=== PATIENT | male | born 1985 | race Caucasian/White ===

== ENCOUNTER 2020-04-08 15:50 | Emergency (ER) | payer MEDICAID, SELFPAY ==
[2020-04-08 16:00] VITALS: BP 144/95; PULSE 110; RESP 18; TEMP 36.1; O2SAT 97; BMI 31.1
--- NOTE | 2020-04-08 16:07 | ED.DENTAL ---
HPI - Dental/Oral General Chief complaint: Dental/Oral Stated complaint: Dental pain Time Seen by Provider: 04/08/20 16:07 History of Present Illness HPI Narrative: Patient complains of right upper molar pain for several days, no fever no chills no difficulty breathing or swallowing Related Data Previous Rx's Medication Instructions Recorded hydrocodone-acetaminophen 1 tab PO Q6H PRN #14 tab 04/08/20 ibuprofen 600 mg PO Q6H PRN #20 tab 04/08/20 penicillin V potassium 500 mg PO QID 7 Days #28 tab 04/08/20 Allergies Allergy/AdvReac Type Severity Reaction Status Date / Time No Known Allergies Allergy Verified 04/08/20 16:02 [No Known Allergies*] Review of Systems Review of Systems: No fever no chills no dizziness no weakness, no difficulty breathing no difficulty swelling no swelling under the tongue no rash Yes all other systems are reviewed and are negative [facility] Past Medical History Attestation statement: The following information was validated with the patient. Source: nursing notes reviewed Medical History (Updated 04/08/20 @ 16:45 by WILLEM Pena) Anxiety Bulging discs Social History Social History Advance Directives: No Advance Directives Information Provided: Yes Physical Exam Vital Signs: Vital Signs: Last Vital Signs Temp 97.0 F 04/08/20 16:00 Pulse 110 H 04/08/20 16:00 Resp 18 04/08/20 16:00 BP 144/95 H 04/08/20 16:00 Pulse Ox 97 04/08/20 16:00 Body Mass Index 31.1 General appearance a and O x3 comfortable no acute distress The oral exam the right upper rear molar is very decayed and tender there was no fluctuant gum abscess, there is no impairment of breathing and swallowing there was no swelling and no swelling under the tongue no drooling and there was no redness to the skin on the right side of the face The pharynx was clear The neck was supple Respiratory no distress Skin no rashes Course Course Course Narrative: Patient was treated for possible dental infection with penicillin and given analgesics and will follow with dentist Discharge Plan Discharge Clinical Impression: Dental caries Patient Disposition: Home, Self-Care Additional Instructions: Follow with dentist Return any time if worse Prescriptions: New hydrocodone-acetaminophen 5-325 mg tablet 1 tab PO Q6H PRN (Reason: pain) Qty: 14 RF: 0 ibuprofen 600 mg tablet 600 mg PO Q6H PRN (Reason: pain) Qty: 20 RF: 0 penicillin V potassium 500 mg tablet 500 mg PO QID 7 Days Qty: 28 RF: 0 Interventions: ED Discharge Assessment Last Done: 04/08/20 16:47 Discharge Date/Time: 04/08/20 16:50
[2020-04-08] MEDS: Ibuprofen 600 MG TABLET PO (16:18)
[2020-04-08] MEDS: Penicillin V Potassium 250 MG TABLET 500 MG PO (16:18)
== END 2020-04-08 16:50 | disposition home or self-care (01) ==
PROVIDERS: Emergency Provider Emergency Medicine Emergency Medical Services; PCP Internal Medicine
DX: K02.9 Dental caries, unspecified (principal)
CPT/HCPCS: 99283

== ENCOUNTER 2020-04-09 03:25 | Emergency (ER) | payer MEDICAID, SELFPAY ==
[2020-04-09 03:41] VITALS: BP 149/97; PULSE 105; RESP 20; O2SAT 98; BMI 31.1
--- NOTE | 2020-04-09 04:22 | ED_ITS ---
HPI - Dental/Oral General Chief complaint: Dental/Oral Stated complaint: Dental pain Time Seen by Provider: 04/09/20 04:22 Source: patient Mode of arrival: ambulatory Limitations: no limitations History of Present Illness HPI Narrative: This is a 34-year-old male who presents with persistent tooth pain, but states that this is due to the fact that his pharmacy was not open today and he was unable to purchase the antibiotics. Otherwise he denies any fevers, chills, difficulty swallowing or difficulty breathing. Related Data Previous Rx's Medication Instructions Recorded hydrocodone-acetaminophen 1 tab PO Q6H PRN #14 tab 04/08/20 ibuprofen 600 mg PO Q6H PRN #20 tab 04/08/20 penicillin V potassium 500 mg PO QID 7 Days #28 tab 04/08/20 Allergies Allergy/AdvReac Type Severity Reaction Status Date / Time No Known Allergies Allergy Verified 04/09/20 03:41 [No Known Allergies*] Review of Systems Review of Systems: Pertinent positives and negatives as stated in HPI and 10 point review systems is otherwise negative. [facility] Past Medical History Source: nursing notes reviewed Medical History Anxiety Bulging discs Social History Social History Alcohol intake: never Smoking Status: Never smoker Use of substances other than those prescribed or required for medical reasons: No Advance Directives: No Advance Directives Information Provided: No Physical Exam Vital Signs: Vital Signs: Last Vital Signs Pulse 105 H 04/09/20 03:41 Resp 20 04/09/20 03:41 BP 149/97 H 04/09/20 03:41 Pulse Ox 98 04/09/20 03:41 Body Mass Index 31.1 VITAL SIGNS: Reviewed. GENERAL: no acute distress. HEAD: Normocephalic/atraumatic, EYES: PERRLA, EOMI intact without pain, no nystagmus/pallor/icterus noted EARS: Ext canals without abnormality, TMs non-bulging and non-erythematous NOSE: Nares patent bilateral OROPHARYNX: no oral lesions noted, posterior pharynx clear and non-erythematous without noted tonsillar enlargement/erythema/exudates; no obvious dental caries, however there is mild swelling to the gum area over the right front and canine tooth. NECK: Supple, no adenopathy LUNGS: Normal breath sounds. No adventitious sounds or accessory muscle use. SpO2<98> CARDIOVASCULAR: Regular rate and rhythm without noted murmurs, no JVD or lower extremity edema. ABDOMEN: Soft, non-tender, non-distended with bowel sounds. No rigidity. No guarding. No palpable masses or hernias noted Course Course Course Narrative: This is a 34-year-old male with dental infection for which he has prescriptions that he will be able to fill in the morning, but he is here for an additional dose as he was unable to take any medications yesterday. T here are no evidence of systemic infection he will be provided with another dose penicillin as well as combination analgesics and discharged home in stable condition. Discharge Plan Discharge Clinical Impression: Dental caries Patient Disposition: Home, Self-Care Instructions: Mouth Care (ED), Toothache (ED) Additional Instructions: Please do not hesitate to return the emergency department should you experience any worsening of her symptoms or the development of fever/chills that are not re sponsive to [id number] Tylenol or ibuprofen. Please fill your prescriptions 1st thing in the morning when the pharmacy opens and complete the entire course of antibiotics. Prescriptions: No Action hydrocodone-acetaminophen 5-325 mg tablet 1 tab PO Q6H PRN (Reason: pain) Qty: 14 RF: 0 ibuprofen 600 mg tablet 600 mg PO Q6H PRN (Reason: pain) Qty: 20 RF: 0 penicillin V potassium 500 mg tablet 500 mg PO QID 7 Days Qty: 28 RF: 0 Referrals: Physician,Unknown [Primary Care Provider] - 2 days
[2020-04-09] MEDS: Ketorolac Tromethamine 15 MG/ML VIAL IM (04:49)
[2020-04-09] MEDS: Acetaminophen 325 MG TABLET 975 MG PO (04:49)
[2020-04-09] MEDS: Penicillin V Potassium 250 MG TABLET 500 MG PO (04:50)
== END 2020-04-09 04:50 | disposition home or self-care (01) ==
PROVIDERS: Emergency Provider Student in an Organized Health Care Education/Training Program
DX: K02.9 Dental caries, unspecified (principal)
CPT/HCPCS: 96372; 99284; J1885

== ENCOUNTER 2020-04-10 12:45 | Emergency (ER) | payer MEDICAID, SELFPAY ==
[2020-04-10 14:07] VITALS: BP 132/82; PULSE 98; RESP 18; TEMP 36.8; O2SAT 98; BMI 31.1
[2020-04-10 16:30] VITALS: RESP 18
--- NOTE | 2020-04-10 16:34 | ED.GENADULT ---
HPI - General Adult General Chief complaint: General Medical Stated complaint: facial swelling Time Seen by Provider: 04/10/20 16:28 Source: patient Mode of arrival: ambulatory Limitations: no limitations History of Present Illness HPI narrative: Patient comes emergency room complaining of facial swelling. Patient has been here 3 days in a row with the same complaint. Today patient came because his face is still swollen. Patient was seen here yesterday, he was prescribed penicillin, ibuprofen and Vicodin. Patient states he has enough pain medication. Patient has been taking his antibiotic for less than 24 hours. According to the patient, the swelling has gone down, no longer affecting the lower portion of his eye, the facial swelling is also decreasing but it has not gone yet. Patient denies pain, states that since he started the antibiotic, the pain has decreased. Patient came because his face still swollen. Patient denies fever and chills, patient reports improvement from his previous visit the ER yesterday MD complaint: Facial swelling Related Data Previous Rx's Medication Instructions Recorded hydrocodone-acetaminophen 1 tab PO Q6H PRN #14 tab 04/08/20 ibuprofen 600 mg PO Q6H PRN #20 tab 04/08/20 penicillin V potassium 500 mg PO QID 7 Days #28 tab 04/08/20 Allergies Allergy/AdvReac Type Severity Reaction Status Date / Time No Known Allergies Allergy Verified 04/09/20 03:41 [No Known Allergies*] Review of Systems Review of Systems: Constitutional : No Weight loss, No Fever, No Chills, No Night Sweats, No Fatigue, No Malaise ENT/Mouth : No Hearing loss, No Ear Pain, No Nasal Congestion, No Sinus Pain, No Hoarseness, No sore throat, No Rhinorrhea, No Swallowing Difficulty, improving facial swelling, dental pain nearly resolved Eyes: No Eye Pain, No Swelling, No Redness, No Foreign Body, No Discharge, No Vision Changes Cardiovascular : No Chest Pain, No SOB, No Dyspnea on Exertion, No Orthopnea, No Edema, No Palpitations Respiratory : No Cough, No Sputum, No Wheezing, No Smoke Exposure, No Dyspnea Gastrointestinal : No Nausea, No Vomiting, No Diarrhea, No Constipation, No abdominal Pain, No Hematochezia, No Melena Genitourinary : no irregular bleeding, No Dysuria, No Urinary Frequency, No Hematuria, No Urinary Incontinence, No Urgency, No Flank Pain, No Urinary Flow Changes, No Hesitancy Musculoskeletal : No joint pain, No Myalgias, No Joint Swelling Skin : No Skin Lesions, No rash Neuro : No Weakness, No Numbness, No Paresthesias, No Loss of Consciousness, No Dizziness, No Headache Psych : No Anxiety/Panic, No Depression, No SI/HI/AH/VH, No Social Issues, Heme/Lymph: No Bruising, No Bleeding,No Lymphadenopathy Endocrine : No Polyuria, No Polydipsia, No Temperature Intolerance ON LICENSE OF [facility] Past Medical History Medical History Anxiety Bulging discs Social History Social History Alcohol intake: never Smoking Status: Never smoker Smoked in Last 30 Days: No Use of substances other than those prescribed or required for medical reasons: No Advance Directives: No Advance Directives Information Provided: Yes Physical Exam Vital Signs: Vital Signs: Last Vital Signs Temp 98.2 F 04/10/20 14:07 Pulse 98 04/10/20 14:07 Resp 18 04/10/20 16:30 BP 132/82 04/10/20 14:07 Pulse Ox 98 04/10/20 14:07 Body Mass Index 31.1 Appearance: Alert. Oriented X3. No acute distress. Eyes: Pupils equal, round and reactive to light. ENT: Pharynx normal. No orbital swelling, mild facial swelling on the cheek right side, no erythema, no signs of cellulitis. Poor dentition, no pain to palpation Neck: Normal inspection. Neck supple. No lymph nodes noted. No crepitus CVS: Normal heart rate and rhythm. Pulses normal. Normal S1 and S2 Respiratory: No respiratory distress. Breath sounds normal. No Wheezing. No rales Abdomen: Soft and nontender. No rigidity. No distention. good BS x4 Skin: Skin warm and dry. Normal skin color. Normal skin turgor. Extremities: No lower extremity edema. No lower extremity edema. No Lacerations. No Rash Neuro: Oriented X 3. No motor deficit. No sensory deficit. Moving all extermities. No slurred speech. Course Course Course Narrative: Overall, patient is improving, the swelling is decreasing, there is no pain. Patient has had antibiotics for less than 24 hours. I discussed with the patient to continue taking the pain medication and antibiotics as prescribed yesterday, and to keep monitoring the progress. If he has any worsening symptoms, any new symptoms, he is to return to the emergency room. I discussed with the patient that the main treatment will be a dental procedure, for which he must follow up with his dentist Discharge Plan Discharge Clinical Impression: Right facial swelling Patient Disposition: Home, Self-Care Instructions: Dental Abscess (ED) Additional Instructions: Please follow-up with your dentist. Please follow-up with your primary care physician tomorrow. If you have any worsening or new symptoms, please return to the emergency room or call 911 Prescriptions: No Action hydrocodone-acetaminophen 5-325 mg tablet 1 tab PO Q6H PRN (Reason: pain) Qty: 14 RF: 0 ibuprofen 600 mg tablet 600 mg PO Q6H PRN (Reason: pain) Qty: 20 RF: 0 penicillin V potassium 500 mg tablet 500 mg PO QID 7 Days Qty: 28 RF: 0
== END 2020-04-10 16:48 | disposition home or self-care (01) ==
PROVIDERS: Emergency Provider Emergency Medicine; PCP Internal Medicine
DX: R22.0 Localized swelling, mass and lump, head (principal); Z79.899 Other long term (current) drug therapy
CPT/HCPCS: 99283; 99284

== ENCOUNTER 2024-04-05 23:05 | Emergency (ER) | payer MEDICAID, SELFPAY ==
--- NOTE | ~2024-04-05 | CT_ITS ---
EXAMINATION: CT ABDOMEN AND PELVIS WITHOUT CONTRAST CLINICAL INFORMATION: Abdominal pain. COMPARISON: None available. TECHNIQUE: Multidetector volumetric imaging was performed from the superior aspect of the liver through the pubic symphysis. Sagittal and coronal reformatted images were obtained on the technologist's workstation. This CT examination was performed using dose optimization techniques as appropriate, variously including the following: *Automated exposure control *Adjustment of mA and/or kV according to patient size (this includes techniques or standardized protocols for targeted exams where dose is matched to indication/reason for exam; i.e. extremities or head) *Use of iterative reconstruction technique DLP: 712 mGy-cm FINDINGS: LUNG BASES: The visualized lung bases are unremarkable. LIVER, GALLBLADDER, AND BILIARY TREE: The liver is normal in size, shape, and attenuation. No focal hepatic lesion or biliary ductal dilatation is present. The gallbladder is unremarkable with no evidence of radiopaque gallstones, gallbladder wall thickening, or obvious pericholecystic inflammatory changes. PANCREAS: Unremarkable. SPLEEN: Unremarkable. ADRENAL GLANDS: Unremarkable. KIDNEYS AND URETERS: The kidneys are normal in size, shape, and attenuation. There is mild right hydronephrosis and hydroureter extending into the pelvis to the level of a 2 mm distal right ureteric calculus. BLADDER: Unremarkable. GASTROINTESTINAL TRACT: The small and large bowel are unremarkable. The appendix is not seen. There are surgical clips at the base of the cecum. ABDOMINAL WALL: No significant hernia is appreciated. LYMPH NODES: Normal. VASCULAR: Unremarkable. PELVIC VISCERA: Unremarkable. OSSEOUS STRUCTURES: Unremarkable. CT/CT abdomen pelvis wo IV con IMPRESSION: Mild right hydronephrosis and hydroureter extending into the pelvis to the level of a 2 mm distal right ureteric calculus. Fleischner guidelines were followed. Electronically signed by: Jean Pierre Martell MD 04/06/2024 02:28 AM EST
--- NOTE | ~2024-04-05 | US_ITS ---
EXAMINATION: US SCROTUM CLINICAL INFORMATION: Pain. COMPARISON: None available. TECHNIQUE: A sonogram of the scrotum was performed assessing villagomez-scale appearance and color Doppler flow. Spectral Doppler analysis of the arterial and venous flow were performed in the testes bilaterally. FINDINGS: RIGHT: Right testicle measures 5 x 2.3 x 3.3 cm, volume 19.8 mL. No focal testicular parenchymal lesions are visualized. Spectral Doppler analysis of the arterial and venous flow is normal in the right testis. Right epididymal head is normal in size. No right hydrocele or varicocele is seen. Right epididymal Doppler flow is LEFT: Left testicle measures 4.8 x 2.4 x 3.1 cm, volume 18.6 mL. No focal testicular parenchymal lesions are visualized. Spectral Doppler analysis of the arterial and venous flow is normal in the left testis. There is a 1 x 0.7 x 0.6 cm left epididymal head cyst. No left hydrocele or varicocele is seen. Left epididymal Doppler flow is normal. US/US scrotum doppler IMPRESSION: Normal scrotal ultrasound. Electronically signed by: Jean Pierre Martell MD 04/06/2024 01:56 AM EST
--- NOTE | ~2024-04-05 | US_ITS ---
EXAMINATION: US SCROTUM CLINICAL INFORMATION: Pain. COMPARISON: None available. TECHNIQUE: A sonogram of the scrotum was performed assessing villagomez-scale appearance and color Doppler flow. Spectral Doppler analysis of the arterial and venous flow were performed in the testes bilaterally. FINDINGS: RIGHT: Right testicle measures 5 x 2.3 x 3.3 cm, volume 19.8 mL. No focal testicular parenchymal lesions are visualized. Spectral Doppler analysis of the arterial and venous flow is normal in the right testis. Right epididymal head is normal in size. No right hydrocele or varicocele is seen. Right epididymal Doppler flow is LEFT: Left testicle measures 4.8 x 2.4 x 3.1 cm, volume 18.6 mL. No focal testicular parenchymal lesions are visualized. Spectral Doppler analysis of the arterial and venous flow is normal in the left testis. There is a 1 x 0.7 x 0.6 cm left epididymal head cyst. No left hydrocele or varicocele is seen. Left epididymal Doppler flow is normal. US/US scrotum IMPRESSION: Normal scrotal ultrasound. Electronically signed by: Jean Pierre Martell MD 04/06/2024 01:56 AM EST
[2024-04-05 23:08] VITALS: BP 156/99; PULSE 99; RESP 18; TEMP 36.6; O2SAT 100; BMI 29.2
[2024-04-05 23:25] VITALS: BP 157/105; PULSE 109; RESP 22; TEMP 36.5; O2SAT 100
[2024-04-05] MEDS: ondansetron HCL 4 MG/2 ML VIAL IVPUSH (23:38)
[2024-04-05] MEDS: Ketorolac Tromethamine 30 MG/ML VIAL IVPUSH (23:49)
[2024-04-05] MEDS: 0.9 % Sodium Chloride 1,000 ML 999 ML IV (23:52)
[2024-04-06] VITALS: BP 145/96; PULSE 83; RESP 18; TEMP 36.5; O2SAT 100
--- NOTE | 2024-04-06 00:06 | ED.MALEGU ---
HPI - Male Genitourinary General Chief complaint: Urogenital-Male Stated complaint: lower back, abdominal and testicle pain Time Seen by Provider: 04/05/24 23:41 Source: patient, RN notes reviewed and old records reviewed Mode of arrival: ambulatory Limitations: no limitations History of Present Illness ED Provider: Danna JARAMILLO Narrative: 38-year-old male presents for evaluation of a sudden onset of right lower abdominal pain that radiates to his back. His pain started about 2 hours prior to arrival. He has associated nausea. He reports that he was sweaty and feels cold He denies any difficulty urinating. Denies any blood in the urine. He is unsure if he has a history of kidney stones He reports when he was younger he had surgery on his testicles from being twisted. ? Denies any history abdominal surgeries Related Data Previous Rx's ?Medication ?Instructions ?Recorded hydrocodone 5 mg-acetaminophen 325 1 tab PO Q6H PRN pain #14 tabs 25/20 mg tablet ibuprofen 600 mg tablet 600 mg PO Q6H PRN pain #20 tabs 04/08/20 penicillin V potassium 500 mg 500 mg PO QID 7 days #28 tabs 04/08/20 tablet ketorolac 10 mg tablet 10 mg PO Q8H PRN pain #12 tabs 04/06/24 ondansetron HCl 4 mg tablet 4 mg PO Q6H PRN nausea and 04/06/24 vomiting #14 tabs prednisone 20 mg tablet 20 mg PO DAILY #3 tabs 04/06/24 tamsulosin 0.4 mg capsule (Flomax) 0.4 mg PO DAILY #14 caps 04/06/24 Allergies Allergy/AdvReac Type Severity Reaction Status Date / Time No Known Allergies Allergy Verified 04/05/24 23:15 [No Known Allergies*] Review of Systems Constitutional: Constitutional: Denies body ache(s), Denies chills and Denies fever(s) Eyes: Eyes: Denies blurry vision ENT: Denies vertigo and Denies dizziness Cardiovascular: Cardiovascular: Denies chest pain and Denies dyspnea Respiratory: Respiratory: Denies cough and Denies dyspnea Gastrointestinal: Gastrointestinal: Reports abdominal pain, Denies nausea and Denies vomiting Genitourinary: Genitourinary: Denies dysuria, Reports flank pain, Reports testicular pain, Denies urinary incontinence and Denies urinary urgency Musculoskeletal: Musculoskeletal: Reports back pain Integumentary/Breasts: Skin/Breast: Denies rash Neurologic: Denies vertigo and Denies dizziness Psychiatric: Psychiatric: Denies anxiety PMFSH Past Medical History Medical History Anxiety Bulging discs Social History Social History Alcohol intake: never Smoked in Last 30 Days: No Use of substances other than those prescribed or required for medical reasons: No Advance Directives: No Advance Directives Information Provided: Yes Physical Exam Vital Signs: Vital Signs: Last Vital Signs Temp 97.8 F 04/06/24 01:45 Pulse 97 04/06/24 01:45 Resp 16 04/06/24 01:45 BP 143/87 H 04/06/24 01:45 Pulse Ox 97 04/06/24 01:45 O2 Del Method Room Air 04/06/24 01:45 BMI result Body Mass Index 29.2 Const: General: alert, awake and acute distress (Patient appears uncomfortable but nontoxic appearing) moderate Nutritional Appearance: well nourished Orientation/consciousness: patient oriented x3 Limitations: no limitations HEENT: Head: Yes normocephalic and Yes atraumatic Eyes: Eyelids: Yes eyelids normal Conjunctivae: conjunctivae normal Sclerae: sclerae normal Corneas: corneas normal Pupils: Equal, round and reactive pupils present EOM: EOMs intact bilaterally Neck: Neck: Yes full ROM Resp: Effort & Inspection: normal respiratory effort, able to speak in complete sentences and not labored Cardio: Rate: regular rate Rhythm: regular rhythm GI: Inspection: No distended Palpation (GI): Soft to palpation, not firm, Tenderness to palpation present (GI) in the RLQ, no guarding and not rigid : Other: No palpable inguinal hernia Testes: not enlarged, no epidiymal masses, no epidiymal tenderness, no testicular mass, no testicular swelling and testicular tenderness bilateral and diffuse Skin: General skin exam: elasticity normal Neuro: General: patient oriented x3 Cranial nerves: Yes Equal, round and reactive pupils present and Yes Bilaterally intact EOM present Cognition (Neuro): normal cognition Course Reevaluation(s) Reevaluation #1: Patient's pain is significantly improved after IV Toradol. His pain is a 2/10 Time: 00:13 Medications Administered Discontinued Medications Generic Name Dose Route Start Last Admin Trade Name Nuvia PRN Reason Stop Dose Admin Acetaminophen 650 mg 04/06/24 01:38 04/06/24 01:44 Acetaminophen 325 Mg Tablet PO 04/06/24 01:39 650 mg ONCE ONE Administration Sodium Chloride 1,000 mls @ 999 mls/hr 04/05/24 23:45 04/06/24 02:07 Ns IV 04/06/24 00:45 Infused .Q1H1M BIANCA Infusion Ketorolac Tromethamine 30 mg 04/05/24 23:41 04/05/24 23:49 Ketorolac Tromethamine 30 Mg/Ml Vial IVPUSH 04/05/24 23:42 30 mg ONCE ONE Administration Ondansetron HCl 4 mg 04/05/24 23:35 04/05/24 23:38 Ondansetron Hcl 4 Mg/2 Ml Vial IVPUSH 04/05/24 23:36 4 mg ONCE ONE Administration Medical Decision Making Medical Decision Making [facility] Narrative: 38-year-old male presents for evaluation of mostly right testicular pain that radiates to his right abdomen and flank. It sounds like he has a history of testicular torsion. Plan for scrotal ultrasound to rule out torsion. Also in the differential is obstructive uropathy, pyelonephritis, inguinal hernia, acute appendicitis but these are favored to be less likely. Plan for labs, urinalysis in addition to the ultrasound. The patient is medicated with Toradol I received sign-out from my colleague WILLEM Clay -CT scan shows a 2 mm stones with mild hydronephrosis. UA negative for UTI. Patient was given tramadol p.o. prior to discharge, patient will follow-up with his PCP and Urology Differential Diagnosis Differential Diagnoses: The differential diagnosis associated with the presentation includes As above Admission/Observation Consideration of admission/observation: Escalation of care including admission/observation considered (Given patient's initial presentation and discomfort, observation was considered) Lab Data 04/06/24 00:31 04/06/24 00:31 Labs: Lab Results 04/06/24 04/06/24 Range/Units 00:31 02:17 WBC 9.7 (4.8-10.8) X10*3/uL RBC 4.26 L (4.60-5.80) X10*6/uL Hgb 13.1 L (14.0-18.0) g/dl Hct 38.1 L (42.0-52.0) % MCV 89.4 (80.0-98.0) fL MCH 30.8 (27.0-33.0) pg MCHC 34.4 (31.0-36.0) g/dl RDW 12.5 (11.0-16.0) % Plt Count 223 (160-400) X10*3/uL MPV 10.2 (9.4-12.4) fL Immature Gran % (Auto) 0.2 (0.0-0.4) % Neut % (Auto) 77.8 H (45-73) % Lymph % (Auto) 12.2 L (20-40) % [place]clennan % (Auto) 8.1 (2-11) % Eos % (Auto) 1.2 (0-4) % Baso % (Auto) 0.5 (0-2) % Lymph # (Auto) 1.2 (1.2-4.9) X10*3/uL Mclennan # (Auto) 0.8 (0.1-1.2) X10*3/uL Eos # (Auto) 0.1 (0.0-0.4) X10*3/uL Baso # (Auto) 0.1 (0.0-0.2) X10*3/uL Abs Immat Gran (auto) 0.02 (0.00-0.03) X10*3/uL Absolute Neuts (auto) 7.6 (2.0-8.3) x10*3/uL Absolute Nucleated RBC 0.000 (0.0-0.012) X10*3/uL Nucleated RBC % (auto) 0.0 (0.0-0.2) /100WBC Sodium 142 (135-145) mmol/L Potassium 4.5 (3.3-5.1) mmol/L Chloride 105 (96-108) mmol/L Carbon Dioxide 24 (22-29) mmol/L Anion Gap 18 (12-20) BUN 15 (9-16) mg/dL Creatinine 0.88 (0.5-1.4) mg/dL Estim Creat Clear Calc 140.4 Estimated GFR > 60 Random Glucose 105 (60-115) mg/dL Calcium 9.4 (8.4-10.2) mg/dL Total Bilirubin 0.8 (0.0-1.0) mg/dL AST 38 H (5-37) U/L ALT 33 (0-40) U/L Alkaline Phosphatase 48 (39-117) U/L Total Protein 7.5 (6.5-8.0) g/dL Albumin 4.5 (3.5-5.0) g/dL Urine Color Yellow Urine Appearance Cloudy Urine pH 7.0 (5.0-9.0) Ur Specific [place] 1.015 (1.005-1.025) Urine Protein Negative (Neg-Trace) mg/dL Urine Glucose (UA) Negative (Negative) mg/dL Urine Ketones 15 (Negative) mg/dL Urine Blood Negative (Negative) Urine Nitrite Negative (Negative) Ur Leukocyte Esterase Negative (Negative) Urine RBC 0-2 (0-2) /HPF Urine WBC 0-5 (0-5) /HPF Ur Squamous Epith Cells 0-2 (0-2) /HPF Urine Bacteria None Seen (None Seen) Hyaline Casts 0-2 (0-2) /LPF Chlam trachomat DNA PCR NOT DETECTED (Not Detect.) N.gonorrhoeae DNA (PCR) NOT DETECTED (Not Detect.) Independent Interpretation I performed an independent interpretation of an: CT Scan Radiology Impression Discussion of test interpretation with radiology: I have reviewed the radiologist's reading. Radiologist Impression: Mild right hydronephrosis and hydroureter extending into the pelvis to the level of a 2 mm distal right ureteric calculus Critical Care Time Critical Care Time Critical Care Time: Yes Total Critical Care Time: 30 Attestation: I have personally provided critical care time. Time includes review of lab data, radiology results, discussion with consultants, and monitoring for potential decompensation. Intervention performed as documented. Discharge Plan Discharge Clinical Impression: Pain in testicle, Ureterolithiasis Patient Disposition: Home, Self-Care Instructions: Kidney Stones (ED) Additional Instructions: Please follow-up with your primary care physician tomorrow. If you have any worsening or new symptoms, please return to the emergency room or call 911 Prescriptions: New ketorolac 10 mg tablet 10 mg PO Q8H PRN (Reason: pain) Qty: 12 0RF Rx Instructions: Do not use this medication with NSAIDs tamsulosin [Flomax] 0.4 mg capsule 0.4 mg PO DAILY Qty: 14 0RF ondansetron HCl 4 mg tablet 4 mg PO Q6H PRN (Reason: nausea and vomiting) Qty: 14 0RF prednisone 20 mg tablet 20 mg PO DAILY Qty: 3 0RF No Action hydrocodone-acetaminophen 5-325 mg tablet 1 tab PO Q6H PRN (Reason: pain) Qty: 14 0RF Rx Instructions: Narcotic, may cause drowsiness, no driving for 6 hours after taking ibuprofen 600 mg tablet 600 mg PO Q6H PRN (Reason: pain) Qty: 20 0RF penicillin V potassium 500 mg tablet 500 mg PO QID 7 Days Qty: 28 0RF Referrals: Roberto Souza MD [Physician] - 04/13/24 Stand Alone Forms: Work/School Release Print Language: Kyrgyz
[2024-04-06 00:37] LABS: MANUAL DIFF FLAG NO
[2024-04-06 00:38] LABS: Basophils Absolute Auto 0.1 X10*3/uL (0.0-0.2); Basophils Percent Auto 0.5 % (0-2); Eosinophils Absolute Auto 0.1 X10*3/uL (0.0-0.4); Eosinophils Percent Auto 1.2 % (0-4); Hematocrit 38.1 % (42.0-52.0); Hemoglobin 13.1 g/dl (14.0-18.0); Imm Gran Abs Auto 0.02 X10*3/uL (0.00-0.03); Imm Gran Pct Auto 0.2 % (0.0-0.4); Lymphocytes Absolute Auto 1.2 X10*3/uL (1.2-4.9); Lymphocytes Percent Auto 12.2 % (20-40); Mean Corpuscular HGB Conc 34.4 g/dl (31.0-36.0); Mean Corpuscular Hemoglobin 30.8 pg (27.0-33.0); Mean Corpuscular Volume 89.4 fL (80.0-98.0); Mean Platelet Volume 10.2 fL (9.4-12.4); Monocytes Absolute Auto 0.8 X10*3/uL (0.1-1.2); Monocytes Percent Auto 8.1 % (2-11); Neutrophils Absolute Auto 7.6 x10*3/uL (2.0-8.3); Neutrophils Percent Auto 77.8 % (45-73); Platelet Count 223 X10*3/uL (160-400); Red Blood Count 4.26 X10*6/uL (4.60-5.80); Red Cell Distribution Width 12.5 % (11.0-16.0); White Blood Count 9.7 X10*3/uL (4.8-10.8)
[2024-04-06 01:05] LABS: Alanine Aminotransferase 33 U/L (0-40); Albumin Level 4.5 g/dL (3.5-5.0); Alkaline Phosphatase 48 U/L (39-117); Anion Gap 18 (12-20); Aspartate Amino Transferase 38 U/L (5-37); Bilirubin Total 0.8 mg/dL (0.0-1.0); Blood Urea Nitrogen 15 mg/dL (9-16); Calcium 9.4 mg/dL (8.4-10.2); Carbon Dioxide 24 mmol/L (22-29); Chloride 105 mmol/L (96-108); Creatinine Clr Calc Pharmacy 140.4; Estimated Glomerular Filt Rate > 60; Glucose Random 105 mg/dL (60-115); Potassium 4.5 mmol/L (3.3-5.1); Sodium 142 mmol/L (135-145); Total Protein 7.5 g/dL (6.5-8.0)
[2024-04-06] MEDS: Acetaminophen 325 MG TABLET 650 MG PO (01:44)
[2024-04-06 01:45] VITALS: BP 143/87; PULSE 97; RESP 16; TEMP 36.6; O2SAT 97
[2024-04-06 02:23] LABS: Appearance Urine Cloudy; Color Urine Yellow; Glucose Urine UA Negative (Negative); Leukocyte Esterase Urine Negative (Negative); Nitrite Urine Negative (Negative); Specific Gravity - Urine 1.015 (1.005-1.025); Urine Blood Negative (Negative); Urine Ketones 15 mg/dL (Negative); Urine Protein Negative (Neg-Trace)
[2024-04-06 02:28] LABS: Bacteria Urine None Seen (None Seen); Hyaline Casts Urine 0-2 /LPF (0-2); RBC Urine 0-2 /HPF (0-2); Squamous Epithelial Cell Urine 0-2 /HPF (0-2); WBC Urine 0-5 /HPF (0-5)
[2024-04-06 03:51] LABS: CT PCR NOT DETECTED (Not Detect.); NG PCR NOT DETECTED (Not Detect.)
[2024-04-06] MEDS: HYDROcodone Bit/Acetam 5/325 TABLET 1 TAB PO (04:09)
[2024-04-06 04:10] VITALS: BP 150/98; PULSE 98; RESP 18; TEMP 36.6; O2SAT 99
[2024-04-06 04:13] VITALS: BP 150/98; PULSE 98; RESP 18; TEMP 36.6; O2SAT 99
== END 2024-04-06 04:18 | disposition home or self-care (01) ==
PROVIDERS: Emergency Provider Emergency Medicine; PCP Internal Medicine
DX: N20.1 Calculus of ureter (principal); M54.50 Low back pain, unspecified; R10.2 Pelvic and perineal pain; R11.0 Nausea; N50.812 Left testicular pain; N50.811 Right testicular pain; Z79.899 Other long term (current) drug therapy
CPT/HCPCS: 36415; 74176; 76870; 80053; 81001; 85025; 87491; 87591; 93975; 96361; 96374; 96375; 99284; 99285; J1885; J2405